=== PATIENT | female | born 1960 | race Caucasian/White ===

== ENCOUNTER 2018-01-15 17:49 | Emergency (ER) | payer MEDICARE, MEDICAID ==
[2018-01-15 18:30] VITALS: BP 177/81
[2018-01-15] MEDS ORDERED: Alum Hydrox/Mag Hydrox/Simeth 15 ML, Lidocaine 2% 15 ML PO ONE ×2 (19:09)
[2018-01-15] MEDS ORDERED: Ondansetron 4 MG/2 ML SDV IVPUSH ONE (19:11)
[2018-01-15] MEDS ORDERED: Sodium Chloride 0.9% 1,000 ML IV SCH (19:15)
--- NOTE | 2018-01-15 20:16 | EDM.PDOC ---
ED HPI GENERAL MEDICAL PROBLEM - General Chief Complaint: Abdominal Pain Stated Complaint: STOMACH PAIN, NAUSEA Time Seen by Provider: 01/15/18 18:37 Source of Information: Reports: Patient History Limitations: Reports: No Limitations - History of Present Illness INITIAL COMMENTS - FREE TEXT/NARRATIVE: 57 yo female presents to ER with nausea and vomiting. nausea and epigastric pain started 6 hours ago. very severe last night with emesis. She did take carafate last evening with some relief. this has happened intermittently in the past but resolved after 45 minutes. mhx of gastric surgery 4 years ago without complications. denies fever, chills, headache or general ill feeling. - Related Data Allergies Allergy/AdvReac Type Severity Reaction Status Date / Time aspirin Allergy Cannot Verified 01/15/18 18:31 Remember erythromycin base Allergy Hives Verified 01/15/18 18:31 [Erythromycin Base] NSAIDS (Non-Steroidal Allergy Cannot Verified 01/15/18 18:31 Anti-Inflamma Remember Home Meds: Home Meds Acetaminophen [Tylenol Extra Strength] 500 mg PO DAILY PRN 06/20/13 [History] Adalimumab [Humira] 40 mg SQ ASDIRECTED 06/20/13 [History] Citalopram Hydrobromide [Celexa] 40 mg PO DAILY 06/20/13 [History] Estradiol 1 mg PO DAILY 06/20/13 [History] Methotrexate Sodium [Trexall] 8 mg SQ ASDIRECTED 06/20/13 [History] Calcium Citrate 1 tab PO DAILY 01/15/18 [History] Mecobalamin [B-12] 1 tab PO DAILY 01/15/18 [History] Multivitamin [Multi-Day Vitamins] 1 tab PO DAILY 01/15/18 [History] 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: Musculoskeletal History: Reports: Fracture Immunologic History: Reports: Immunosuppression Dermatologic History: Reports: Psoriasis - Infectious Disease History Infectious Disease History: Reports: Chicken Pox - Past Surgical History GI Surgical History: Reports: Bariatric Procedure, Cholecystectomy, Colonoscopy , EGD Female Surgical History: Reports: Hysterectomy, Salpingo-Oophorectomy Social & Family History - Tobacco Use Smoking Status *Q: Current Every Day Smoker Years of Tobacco use: 10 Packs/Tins Daily: 0.5 - Caffeine Use Caffeine Use: Reports: None - Recreational Drug Use Recreational Drug Use: No ED ROS GENERAL - Review of Systems Review Of Systems: See Below Constitutional: Denies: Fever, Chills Respiratory: Denies: Shortness of Breath, Wheezing Cardiovascular: Denies: Chest Pain GI/Abdominal: Reports: Abdominal Pain Skin: Denies: Rash ED EXAM, GI/ABD - Physical Exam Exam: See Below Exam Limited By: No Limitations General Appearance: Alert, WD/WN, No Apparent Distress Respiratory/Chest: No Respiratory Distress, Lungs Clear, Normal Breath Sounds. No: Crackles, Rhonchi, Wheezing Cardiovascular: Regular Rate, Rhythm, No Murmur GI/Abdominal Exam: Normal Bowel Sounds, Soft, No Distention, No Mass, Tender ( epigastric moderate) Neurological: Alert, Oriented Skin Exam: Warm, Dry, Intact. No: Rash Course - Vital Signs Last Recorded V/S: Last Vital Signs Temp 36.9 C 01/15/18 18:50 Pulse 66 01/15/18 18:50 Resp 16 01/15/18 18:50 BP 177/81 H 01/15/18 18:50 Pulse Ox 97 01/15/18 18:50 - Orders/Labs/Meds Orders: Active Orders 24 hr Category Date Time Status Sodium Chloride 0.9% [Normal Saline] 1,000 ml Med 01/15/18 19:15 Active IV ASDIRECTED Medication Orders Sodium Chloride (Normal Saline) 1,000 mls @ 999 mls/hr IV ASDIRECTED MUSA Last Admin: 01/15/18 19:38 Dose: 999 mls/hr Labs: Laboratory Tests 01/15/18 01/15/18 Range/Units 19:09 19:09 WBC 11.3 H (4.5-11.0) K/uL RBC 4.48 (3.30-5.50) M/uL Hgb 15.3 H (12.0-15.0) g/dL Hct 44.7 (36.0-48.0) % MCV 100 H (80-98) fL MCH 34 H (27-31) pg MCHC 34 (32-36) % Plt Count 280 (150-400) K/uL Neut % (Auto) 67 H (36-66) % Lymph % (Auto) 23 L (24-44) % Phelps % (Auto) 9 H (2-6) % Eos % (Auto) 1 L (2-4) % Baso % (Auto) 0 (0-1) % Sodium 138 L (140-148) mmol/L Potassium 3.6 (3.6-5.2) mmol/L Chloride 102 (100-108) mmol/L Carbon Dioxide 29 (21-32) mmol/L Anion Gap 10.6 (5.0-14.0) mmol/L BUN 10 (7-18) mg/dL Creatinine 0.8 (0.6-1.0) mg/dL Est Cr Clr Drug Dosing 57.07 mL/min Estimated GFR (MDRD) > 60 (>60) Glucose 92 (74-106) mg/dL Calcium 8.5 (8.5-10.1) mg/dL Meds: Medications Generic Name Dose Route Start Last Admin Trade Name Freq PRN Reason Stop Dose Admin Sodium Chloride 1,000 mls @ 999 mls/hr 01/15/18 19:15 01/15/18 19:38 Normal Saline IV 999 mls/hr ASDIRECTED MUSA Administration Discontinued Medications Generic Name Dose Route Start Last Admin Trade Name Freq PRN Reason Stop Dose Admin Al Hydroxide/Mg Hydroxide 15 0 ml 01/15/18 19:09 01/15/18 19:43 ml/ Lidocaine HCl 15 ml PO 01/15/18 19:10 30 ml ONETIME ONE Administration Ondansetron HCl 4 mg 01/15/18 19:11 01/15/18 19:39 Zofran IVPUSH 01/15/18 19:12 4 mg ONETIME ONE Administration - Re-Assessments/Exams Free Text/Narrative Re-Assessment/Exam: 01/15/18 20:19 great improvement in pain following GI cocktail. will follow-up with gastric surgeon. She has carafate. will maintain clear liquid diet tonight advance to liquid tomorrow with continued diet advancement as tolerated Departure - Departure Time of Disposition: 20:21 Disposition: Home, Self-Care 01 Condition: Good Clinical Impression: Epigastric abdominal pain - Discharge Information Instructions: Nausea and Vomiting, Adult, [id number] Referrals: Guerita Fregoso PA [Primary Care Provider] - Additional Instructions: CArafate 30 minutes before meals and bedtime Maintain clear liquid diet tonight advance to liquid tomorrow with continued diet advancement as tolerated follow-up with gastric surgeon - My Orders Last 24 Hours: My Active Orders 01/15/18 19:15 Sodium Chloride 0.9% [Normal Saline] 1,000 ml IV ASDIRECTED - Assessment/Plan Last 24 Hours: My Active Orders 01/15/18 19:15 Sodium Chloride 0.9% [Normal Saline] 1,000 ml IV ASDIRECTED
== END 2018-01-15 20:38 | disposition home or self-care (01) ==
LOC: JP.ED 17:49
DX: R10.13 Epigastric pain (principal); F17.210 Nicotine dependence, cigarettes, uncomplicated; Z88.6 Allergy status to analgesic agent; Z88.8 Allergy status to other drugs, medicaments and biological substances; Z79.899 Other long term (current) drug therapy
CPT/HCPCS: 36415; 80048; 85025; 96361; 96374; 99284; A9270; J2405; J7030

== ENCOUNTER 2018-10-23 03:02 | Emergency (ER) | payer MEDICARE, MEDICAID ==
[2018-10-23 03:26] VITALS: BP 116/76
--- NOTE | 2018-10-23 03:37 | EDM.PDOC ---
ED HPI GENERAL MEDICAL PROBLEM - General Chief Complaint: Skin Complaint Stated Complaint: INFECTION LEFT ARM Time Seen by Provider: 10/23/18 03:32 Source of Information: Reports: Patient History Limitations: Reports: No Limitations - History of Present Illness INITIAL COMMENTS - FREE TEXT/NARRATIVE: pt has a dog scratch on the left wrist . This is red and swollen and is very painful. Onset: Other ( started this pm. ) Duration: Hour(s): Location: Reports: Upper Extremity, Left left wrist Pain Score (Numeric/FACES): 8 - Related Data Allergies Allergy/AdvReac Type Severity Reaction Status Date / Time aspirin Allergy Airway Verified 10/23/18 03:15 Tightness erythromycin base Allergy Hives Verified 01/19/18 07:08 [Erythromycin Base] NSAIDS (Non-Steroidal Allergy Airway Verified 10/23/18 03:15 Anti-Inflamma Tightness Home Meds: Home Meds Acetaminophen [Tylenol Extra Strength] 500 mg PO Q4H PRN 06/20/13 [History] Adalimumab [Humira] 40 mg SQ Q14D 06/20/13 [History] Citalopram Hydrobromide [Celexa] 40 mg PO DAILY 06/20/13 [History] Estradiol 0.5 mg PO DAILY 06/20/13 [History] Methotrexate Sodium [Trexall] 8 mg SQ Q7D 06/20/13 [History] Calcium Citrate 500 mg PO DAILY 01/15/18 [History] Mecobalamin [B-12] 1 tab PO DAILY 01/15/18 [History] Multivitamin [Multi-Day Vitamins] 1 tab PO DAILY 01/15/18 [History] Biotin 2,500 mcg PO DAILY 01/17/18 [History] Cholecalciferol (Vitamin D3) [Vitamin D3] 1,000 units PO DAILY 01/17/18 [History ] Dicyclomine [Bentyl] 10 mg PO Q4H PRN 01/17/18 [History] Esomeprazole Magnesium [Nexium] 20 mg PO DAILY 01/17/18 [History] Folic Acid 2 tab PO .M-SAT 01/17/18 [History] Lovastatin 20 mg PO DAILY 01/17/18 [History] Naltrexone 50 mg PO ASDIRECTED 01/17/18 [History] Vitamin B Complex [B Complex] 1 each PO DAILY 01/17/18 [History] traMADol [Ultram] 50 mg PO Q8H PRN 01/17/18 [History] Nystatin 60 gm TP ASDIRECTED 01/19/18 [History] Past Medical History HEENT History: Reports: Impaired Vision Cardiovascular History: Reports: 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: Musculoskeletal History: Reports: Back Pain, Chronic, Fracture, RA Psychiatric History: Reports: Anxiety, Depression Immunologic History: Reports: Immunosuppression, Other (See Below) Other Immunologic History: pt is currently taking humara for RA Dermatologic History: Reports: Psoriasis - Infectious Disease History Infectious Disease History: Reports: Chicken Pox - Past Surgical History GI Surgical History: Reports: Bariatric Procedure, Cholecystectomy, Colonoscopy , EGD Female Surgical History: Reports: Hysterectomy, Salpingo-Oophorectomy Social & Family History - Family History Family Medical History: Noncontributory - Tobacco Use Smoking Status *Q: Never Smoker - Caffeine Use Caffeine Use: Reports: Coffee - Recreational Drug Use Recreational Drug Use: No ED ROS GENERAL - Review of Systems Review Of Systems: See Below Constitutional: Reports: Other (pain in the left wrist. ) HEENT: Reports: No Symptoms Respiratory: Reports: No Symptoms Cardiovascular: Reports: No Symptoms Endocrine: Reports: No Symptoms GI/Abdominal: Reports: No Symptoms : Reports: No Symptoms Musculoskeletal: Reports: Other (Pain in the left wrist. ) ED EXAM, SKIN/RASH Exam: See Below Text/Narrative:: Pt was scratched by her dog. at the left wrist. Pt is noting alot of pain in the area and it is red. Exam Limited By: No Limitations General Appearance: Alert, Anxious, Moderate Distress Ears: Normal TMs Nose: Normal Inspection Throat/Mouth: Normal Inspection Head: Atraumatic Neck: Normal Inspection Respiratory/Chest: No Respiratory Distress Extremities: Other (left wrist is red . It appears to be very painful. ) Course - Vital Signs Last Recorded V/S: Last Vital Signs Temp 35.7 C 10/23/18 03:26 Pulse 71 10/23/18 03:26 Resp 16 10/23/18 03:26 BP 116/76 10/23/18 03:26 Pulse Ox - Orders/Labs/Meds Orders: Active Orders 24 hr Category Date Time Status Acetaminophen [Tylenol] Med 10/23/18 04:03 Once 650 mg PO NOW ONE Medication Orders Acetaminophen (Tylenol) 650 mg PO NOW ONE Stop: 10/23/18 04:04 Meds: Medications Generic Name Dose Route Start Last Admin Trade Name Jayme PRN Reason Stop Dose Admin Acetaminophen 650 mg 10/23/18 04:03 Tylenol PO 10/23/18 04:04 NOW ONE Discontinued Medications Generic Name Dose Route Start Last Admin Trade Name Jayme PRN Reason Stop Dose Admin Ceftriaxone Sodium 1 gm/ 0 gm 10/23/18 03:38 10/23/18 03:52 Lidocaine HCl 2.1 ml IM 10/23/18 03:39 1 inj ONETIME ONE Administration Ondansetron HCl 4 mg 10/23/18 04:02 Zofran Odt PO 10/23/18 04:03 ONETIME ONE Tramadol HCl 50 mg 10/23/18 04:02 Ultram PO 10/23/18 04:03 ONETIME ONE - Re-Assessments/Exams Free Text/Narrative Re-Assessment/Exam: 10/23/18 04:03 xray revealed no bone changes. She was soaked. She was given rocephen 1gm im and will be placed on augmentin. Departure - Departure Time of Disposition: 04:04 Disposition: Home, Self-Care 01 Condition: Fair Clinical Impression: Infection of left wrist - Discharge Information Referrals: Guerita Fregoso PA [Primary Care Provider] - Forms: ED Department Discharge Care Plan Goals: soak wrist in soapy water tid. Do range of motion of the hand, tramodol 50mg q6h with tylenol 650 three times daily, augmentin 875 bid . Whiole on the antibiotic use yogurt or probiotic. - My Orders Last 24 Hours: My Active Orders 10/23/18 04:03 Acetaminophen [Tylenol] 650 mg PO NOW ONE - Assessment/Plan Last 24 Hours: My Active Orders 10/23/18 04:03 Acetaminophen [Tylenol] 650 mg PO NOW ONE
[2018-10-23] MEDS ORDERED: cefTRIAXone 1 GM, Lidocaine 1% 2.1 ML IM ONE ×2 (03:38)
--- NOTE | 2018-10-23 03:55 | CRLCR ---
INDICATION: Wrist pain infection at site TECHNIQUE: Wrist radiograph 3 views left COMPARISON: None FINDINGS: Bone: A corticated ossicle is seen near the ulnar styloid. No evidence of osteomyelitis is seen. Joint: The radiocarpal, carpal, and carpometacarpal joints are unremarkable in appearance. Soft tissue: Unremarkable. No radiopaque foreign bodies are seen. IMPRESSION: 1. No evidence of osteomyelitis is seen. If there is a high clinical index of suspicion, further evaluation with contrast-enhanced MRI or dual-isotope bone scan is recommended, given their higher sensitivities. Dictated by Miles Noriega MD @ 10/23/2018 3:53:26 AM Dictated by: Miles Noriega MD @ 10/23/2018 03:53:30 (Electronically Signed)
[2018-10-23] MEDS ORDERED: Ondansetron 4 MG Tab.DIS PO ONE (04:02)
[2018-10-23] MEDS ORDERED: traMADol 50 MG Tab PO ONE (04:02)
[2018-10-23] MEDS ORDERED: Acetaminophen 325 MG Tab PO ONE (04:03)
== END 2018-10-23 04:30 | disposition home or self-care (01) ==
LOC: JP.ED 03:02
DX: S60.812A Abrasion of left wrist, initial encounter (principal); L08.9 Local infection of the skin and subcutaneous tissue, unspecified; E78.00 Pure hypercholesterolemia, unspecified; F41.9 Anxiety disorder, unspecified; F32.9 Major depressive disorder, single episode, unspecified; Z79.899 Other long term (current) drug therapy; Z88.8 Allergy status to other drugs, medicaments and biological substances; Z88.1 Allergy status to other antibiotic agents; W54.8XXA Other contact with dog, initial encounter
CPT/HCPCS: 73110; 96372; 99283; A9270; J0696; J2001

== ENCOUNTER 2018-10-24 10:58 | Inpatient (IN) | payer MEDICARE, MEDICAID ==
[2018-10-24] MEDS ORDERED: Ondansetron 4 MG Tab.DIS PO PRN (11:50)
[2018-10-24] MEDS ORDERED: Polyethylene Glycol 3350 Powder 17 GM Packet PO PRN (11:50)
[2018-10-24] MEDS ORDERED: Sodium Chloride 0.9% 10 ML Syringe FLUSH PRN (11:50)
--- NOTE | 2018-10-24 12:12 | PCM.HP ---
H&P History of Present Illness - General Date of Service: 10/24/18 Admit Problem/Dx: Admission Diagnosis/Problem Admission Diagnosis/Problem Cellulitis of wrist Source of Information: Patient, Family, Provider History Limitations: Reports: No Limitations - History of Present Illness Initial Comments - Free Text/Narative: Meghana presented to the clinic this morning with increasing left wrist pain and swelling. She reports onset of moderately severe achy left wrist pain 2 days prior to presentation. This pain radiated into her hand and upper distal forearm. Tramadol has helped the pain a little bit but she still has significant pain. Trying to move her wrist joint into flexion or extension makes the pain severe. She reports being scratched by her dog on the dorsum of her left wrist about one week ago. She did not seek medical treatment but did try to manage the wound at home. She thought things were getting better up until 2-3 days ago. She has had both subjective fevers and shaking chills at home. She has had episodes of nausea but no vomiting. No complaints of abdominal pain. No diarrhea. No other sick contacts or recent travel. She was seen in the emergency room 2 days ago and started on Augmentin. Things have been getting worse despite being on this antibiotic. In the clinic there was concern for superficial infection that was failing outpatient therapy. She was sent to the hospital for direct admission. - Related Data Allergies/Adverse Reactions: Allergies Allergy/AdvReac Type Severity Reaction Status Date / Time aspirin Allergy Airway Verified 10/24/18 12:52 Tightness erythromycin base Allergy Hives Verified 10/24/18 12:52 [Erythromycin Base] NSAIDS (Non-Steroidal Allergy Airway Verified 10/24/18 12:52 Anti-Inflamma Tightness Home Medications: Home Meds Acetaminophen [Tylenol Extra Strength] 1,000 mg PO Q4H PRN 06/20/13 [History] Adalimumab [Humira] 40 mg SQ Q14D 06/20/13 [History] Citalopram Hydrobromide [Celexa] 40 mg PO DAILY 06/20/13 [History] Estradiol 0.5 mg PO DAILY 06/20/13 [History] Methotrexate Sodium [Trexall] 8 mg SQ Q7D 06/20/13 [History] Calcium Citrate 500 mg PO DAILY 01/15/18 [History] Mecobalamin [B-12] 1 tab PO DAILY 01/15/18 [History] Multivitamin [Multi-Day Vitamins] 1 tab PO DAILY 01/15/18 [History] Biotin 2,500 mcg PO DAILY 01/17/18 [History] Cholecalciferol (Vitamin D3) [Vitamin D3] 1,000 units PO DAILY 01/17/18 [History ] Dicyclomine [Bentyl] 10 mg PO Q4H PRN 01/17/18 [History] Esomeprazole Magnesium [Nexium] 40 mg PO DAILY 01/17/18 [History] Folic Acid 2 tab PO .M-SAT 01/17/18 [History] Lovastatin 20 mg PO DAILY 01/17/18 [History] Vitamin B Complex [B Complex] 1 each PO DAILY 01/17/18 [History] traMADol [Ultram] 50 mg PO TID PRN 01/17/18 [History] Nystatin 60 gm TP ASDIRECTED 01/19/18 [History] Amoxicillin/Clavulanate K [Augmentin 875-125 MG] 1 tab PO BID 10/24/18 [History] Calcium Carbonate/Vitamin D3 [Caltrate 600 + D Soft Chew Tab] 2 tab PO DAILY [History] Clobetasol [Clobetasol 0.05%] 1 gram TOP BID PRN 10/24/18 [History] Polyethylene Glycol 3350 [MiraLAX] 17 g PO DAILY PRN 10/24/18 [History] Sucralfate 0.5 gm PO QID 10/24/18 [History] Triamcinolone Acetonide [Triamcinolone Acetonide 0.1% Crm] 1 applic TOP BID PRN 10/24/18 [History] Past Medical History HEENT History: Reports: Impaired Vision Cardiovascular History: Reports: High Cholesterol 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: Musculoskeletal History: Reports: Back Pain, Chronic, Fracture, RA Psychiatric History: Reports: Anxiety, Depression Hematologic History: Reports: None Immunologic History: Reports: Immunosuppression, Other (See Below) Other Immunologic History: pt is currently taking humara for RA Dermatologic History: Reports: Psoriasis - Infectious Disease History Infectious Disease History: Reports: Chicken Pox - Past Surgical History GI Surgical History: Reports: Bariatric Procedure, Cholecystectomy, Colonoscopy , EGD Female Surgical History: Reports: Hysterectomy, Salpingo-Oophorectomy Social & Family History - Family History Family Medical History: Noncontributory - Tobacco Use Smoking Status *Q: Former Smoker Used Tobacco, but Quit: Yes Month/Year Tobacco Last Used: may 2018 - Caffeine Use Caffeine Use: Reports: Coffee, Soda - Alcohol Use Alcohol Use History: No - Recreational Drug Use Recreational Drug Use: No H&P Review of Systems - Review of Systems: Review Of Systems: See Below Free Text/Narrative: A complete 12 point review of systems was obtained. Pertinent positives and negatives are noted in the history of present illness. All other systems were reviewed and were negative except as noted. Exam - Exam Exam: See Below - Vital Signs Vital Signs: Last Vital Signs Temp 37.1 C 10/24/18 11:33 Pulse 80 10/24/18 11:33 Resp 16 10/24/18 11:33 BP 122/82 10/24/18 11:33 Pulse Ox 99 10/24/18 11:33 - Exam Quality Assessment: No: Supplemental Oxygen General: Alert, Oriented, Cooperative. No: Mild Distress HEENT: Conjunctiva Clear, Mucosa Moist & [place]. No: Scleral Icterus Neck: Supple. No: Lymphadenopathy Lungs: Clear to Auscultation, Normal Respiratory Effort Cardiovascular: Regular Rate, Regular Rhythm. No: Systolic Murmur GI/Abdominal Exam: Normal Bowel Sounds, Soft, Non-Tender, No Distention Extremities: No Pedal Edema, Increased Warmth (left wrist dorsally including the thumb. Very tender to touch. Scabbed area dorsal left wrist with 1 cm diameter erythema. There is warmth and swelling that extends proximally from this wound about 6 cm. Any motion of the left wrist is very tender.) Skin: Warm, Dry. No: Rash Neuro Extensive - Mental Status: Alert, Oriented x3, Nl Response to Commands Neuro Extensive - Motor, Sensory, Reflexes: CN II-XII Intact. No: Dysarthria, Abnormal Motor, Tremor Psychiatric: Alert, Normal Affect - Patient Data Result Diagrams: 10/24/18 12:28 10/24/18 12:28 Imaging Impressions Last 24 hrs: MRI left wrist - images were personally reviewed - there is evidence for cellulitis involving the dorsal wrist and hand on the left. There is also Herminia synovitis with increased tendon sheath fluid the second and third extensor compartments. There is also Herminia synovitis in the fourth extensor compartment. *Q Meaningful Use (ADM) - VTE Risk Assess *Q Each Risk Factor Represents 1 Point: Age 41 - 59 years Total Score 1 Point Risk Factors: 1 Each Risk Factor Represents 2 Points: None Total Score 2 Point Risk Factors: 0 Each Risk Factor Represents 3 Points: None Total Score 3 Point Risk Factors: 0 Each Risk Factor Represents 5 Points: None Total Score 5 Point Risk Factors: 0 Venous Thromboembolism Risk Factor Score *Q: 1 - Problem List (1) Infection of left wrist SNOMED Code(s): 902323564, 290839727 ICD Code: M00.9 - PYOGENIC ARTHRITIS, UNSPECIFIED Status: Acute Current Visit: No (2) Rheumatoid arthritis SNOMED Code(s): 47342624 ICD Code: M06.9 - RHEUMATOID ARTHRITIS, UNSPECIFIED Status: Chronic Current Visit: Yes Qualifiers: Rheumatoid arthritis location: multiple sites Rheumatoid factor presence: unspecified presence Qualified Code(s): M06.9 - Rheumatoid arthritis, unspecified Problem List Initiated/Reviewed/Updated: Yes Orders Last 24hrs: Active Orders 24 hr Category Date Time Status Patient Status [ADT] Routine ADT 10/24/18 11:50 Ordered Dietary Supplements [RC] BIDMEALS Care 10/24/18 11:53 Ordered Intake and Output [RC] QSHIFT Care 10/24/18 11:51 Ordered Notify Provider Vital Signs [RC] ASDIRECTED Care 10/24/18 11:51 Ordered Oxygen Therapy [RC] PRN Care 10/24/18 11:50 Ordered Peripheral IV Care [RC] . DIRECTED Care 10/24/18 11:52 Ordered Up ad Kimmie [RC] ASDIRECTED Care 10/24/18 11:50 Ordered VTE/DVT Education [RC] Per Unit Routine Care 10/24/18 11:50 Ordered Vital Signs [RC] Q4H Care 10/24/18 11:50 Ordered Nothing per Oral Now Diet [DIET] Diet 10/24/18 Lunch Ordered Upr Ext Joint w wo Cont Lt [MR] Routine Exams 10/24/18 11:54 Ordered BASIC METABOLIC PANEL,BMP [CHEM] Routine Lab 10/24/18 11:50 Ordered C-REACTIVE PROTEIN [CHEM] Routine Lab 10/24/18 11:50 Ordered CBC WITH AUTO DIFF [HEME] Routine Lab 10/24/18 11:50 Ordered CULTURE BLOOD [BC] Urgent Lab 10/24/18 11:52 Ordered CULTURE BLOOD [BC] Urgent Lab 10/24/18 11:52 Ordered Acetaminophen [Tylenol] Med 10/24/18 11:50 Ordered 650 mg PO Q4H PRN Citalopram Hydrobromide [Celexa] Med 10/25/18 09:00 Ordered 40 mg PO DAILY Clindamycin Phosphate [Cleocin] 300 mg Med 10/24/18 12:00 Ordered Sodium Chloride 0.9% [Normal Saline] 50 ml IV Q6H Docusate Sodium/Sennosides [Senna Plus] Med 10/24/18 11:50 Ordered 1 tab PO BID PRN Doxycycline [Vibramycin] 100 mg Med 10/24/18 12:00 Ordered Sodium Chloride 0.9% [Normal Saline] 100 ml IV Q12HR Estradiol [Estradiol] Med 10/25/18 09:00 Ordered 0.5 mg PO DAILY Folic Acid Med 10/24/18 12:15 Ordered 2 tab PO .M-SAT Lactobacillus Rhamnosus GG [Culturelle] Med 10/24/18 21:00 Ordered 1 cap PO BID Lovastatin [Mevacor] Med 10/25/18 09:00 Ordered 20 mg PO DAILY Ondansetron [Zofran ODT] Med 10/24/18 11:50 Ordered 4 mg PO Q6H PRN Pantoprazole [ProTONIX] Med 10/25/18 07:30 Ordered 40 mg PO ACBREAKFAST Polyethylene Glycol 3350 [MiraLAX] Med 10/24/18 11:50 Ordered 17 gm PO DAILY PRN Sodium Chloride 0.9% @ 125 MLS/HR (1000ml) Med 10/24/18 12:00 Ordered Sodium Chloride 0.9% [Normal Saline] 1,000 ml IV ASDIRECTED Sodium Chloride 0.9% [Saline Flush] Med 10/24/18 11:50 Ordered 10 ml FLUSH ASDIRECTED PRN oxyCODONE Med 10/24/18 11:50 Ordered 5 mg PO Q4H PRN Blood Culture x2 Reflex Set [OM.PC] Urgent Oth 10/24/18 11:52 Ordered Peripheral IV Insertion Adult [OM.PC] Routine Oth 10/24/18 11:50 Ordered Sequential Compression Device [OM.PC] Per Unit Routine Oth 10/24/18 11:51 Ordered Resuscitation Status Routine Resus Stat 10/24/18 11:50 Ordered Medication Orders Acetaminophen (Tylenol) 650 mg PO Q4H PRN PRN Reason: Pain (Mild 1-3)/fever Folic Acid (Folic Acid) mg PO .M-SAT [facility] Clindamycin Phosphate 300 mg/ (Sodium Chloride) 52 mls @ 150 mls/hr IV Q6H [facility] Doxycycline Hyclate 100 mg/ (Sodium Chloride) 100 mls @ 100 mls/hr IV Q12HR [facility] Sodium Chloride (Normal Saline) 1,000 mls @ 125 mls/hr IV ASDIRECTED [facility] Lactobacillus Rhamnosus (Culturelle) 1 cap PO BID [facility] Lovastatin (Mevacor) 20 mg PO DAILY [facility] Non-Formulary Medication (Citalopram Hydrobromide [Celexa]) 40 mg PO DAILY [facility] Non-Formulary Medication (Estradiol [Estradiol]) 0.5 mg PO DAILY [facility] Ondansetron HCl (Zofran Odt) 4 mg PO Q6H PRN PRN Reason: Nausea able to take PO Oxycodone HCl (Oxycodone) 5 mg PO Q4H PRN PRN Reason: Pain (moderate 4-6) Pantoprazole Sodium (Protonix) 40 mg PO ACBREAKFAST [facility] Polyethylene Glycol (Miralax) 17 gm PO DAILY PRN PRN Reason: Constipation Senna/Docusate Sodium (Senna Plus) 1 tab PO BID PRN PRN Reason: Constipation Sodium Chloride (Saline Flush) 10 ml FLUSH ASDIRECTED PRN PRN Reason: Keep Vein Open Assessment/Plan Comment:: ASSESSMENT AND PLAN - Left wrist infection with cellulitis and extensor tenosynovitis - this has been progressing despite outpatient therapy with Augmentin. No evidence for sepsis but she does have leukocytosis and significantly elevated C-reactive protein at more than 10. She has significant pain at this time. Orthopedics will be consult for assistance with management. There is no evidence for sepsis at this time. She is on immunosuppressive medications. -Antibiotic coverage with doxycycline and clindamycin -Pain control -Orthopedics consultation -Blood cultures Rheumatoid arthritis - she is on chronic immunosuppressive medications. Joint symptoms are stable at this time. -Hold immunosuppressive medications until infection has improved Maintenance issues - - DVT prophylaxis - mechanical - GI prophylaxis - PPI - Nutrition - nothing by mouth until after orthopedic consultation in case surgery is needed this afternoon or nothing by mouth after midnight if surgery is planned for tomorrow - Andrew catheter - not indicated CODE STATUS - full code Admission justification - This patient will be admitted for inpatient services and is medically appropriate meeting medical necessity for inpatient admission as outlined in my documentation. I reasonably expect the patient will require inpatient services that span a period time over 2 midnights. I reasonably expect this patient to be discharged or transferred within 96 hours after admission to the [facility]. Disposition - I would anticipate discharge home after the hospital stay Primary care physician - Lidia Zambrano M.D.
[2018-10-24] MEDS ORDERED: Gadoteridol 279.3 MG/ML 15 ML SDV IV SCH (13:00)
[2018-10-24] MEDS: Doxycycline 100 MG in Sodium Chloride 0.9% 100 ML IV SCH (13:11)
[2018-10-24] MEDS: oxyCODONE 5 MG Tab PO PRN ×2 (13:17→20:30)
--- NOTE | 2018-10-24 13:42 | CRLMR ---
HISTORY: Dog bite. Evaluate for deep infection and osteomyelitis. TECHNIQUE: MRI left wrist without and with IV contrast. COMPARISON: Radiographs 10/23/2018. FINDINGS: Localized contour irregularity of the dorsal skin of the wrist may be a wound. Edema like infiltration of subcutaneous fat in the dorsal wrist and hand. Increased fluid in the 2nd and 3rd extensor compartment tendon sheaths. Edema like signal and enhancement around the 4th extensor compartment tendons in the hand, greatest around the index finger extensor tendons. Edema like signal in the deep fascial planes of the distal forearm dorsally. Edema like signal in the dorsal musculature just proximal to the wrist and in the probe artery inner quadratus muscle. Physiologic quantity of fluid in the flexor tendon sheaths. Flexor and extensor tendons are intact. Small effusions of the radiocarpal and midcarpal compartments and the distal radioulnar joint. Prominent fluid in the proximal pisotriquetral recess. Edema like marrow signal in small cysts in the dorsal trapezoid is likely degenerative. 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 Mild positive ulnar variance. Cartilage loss over the proximal lunate with small subchondral cysts and marrow edema. No erosions. No osteomyelitis. Full-thickness tearing of the central triangular fibrocartilage complex. Remote ununited ulnar styloid fracture. No acute fracture. Scapholunate and lunotriquetral ligaments are intact. No focal abnormality of the median or ulnar nerves. IMPRESSION: 1. Findings compatible with cellulitis in the dorsal wrist and hand. 2. Tenosynovitis of the 2nd and 3rd extensor compartments with increased tendon sheath fluid. Fluid may be sterile or infected. Probable tenosynovitis of the 4th extensor compartment without increased tendon sheath fluid. 3. Reactive edema or myositis in the distal dorsal forearm musculature. 4. Small radiocarpal, midcarpal, and distal radioulnar joint effusions. No erosions or osteomyelitis. 5. 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 6. Full-thickness tearing of the central triangular fibrocartilage complex. Dictated by Darwin León MD @ Oct 24 2018 1:27PM Signed by Dr. Darwin León @ Oct 24 2018 1:40PM
--- NOTE | 2018-10-24 16:44 | PCM.CONS ---
H&P History of Present Illness - General Date of Service: 10/24/18 Admit Problem/Dx: Admission Diagnosis/Problem Admission Diagnosis/Problem Cellulitis of wrist Source of Information: Patient, Old Records History Limitations: Reports: No Limitations - History of Present Illness Initial Comments - Free Text/Narative: 58-year-old female admitted with left wrist infection. She reports being scratched by her dog at home about a week ago. She didn't think too much of the wound and dressed it herself at home. Seem to be doing well until a couple of days ago when she had increased pain and swelling and redness. These seemed to come on after she took her usual dose of methotrexate and Humira. Was started on Augmentin but pain and redness worsened. She is admitted to the clinic today for IV antibiotics and evaluation of possible septic wrist. Onset of Symptoms: Reports: Gradual Improves with: Reports: Rest Worsens with: Reports: Movement - Related Data Allergies/Adverse Reactions: Allergies Allergy/AdvReac Type Severity Reaction Status Date / Time aspirin Allergy Airway Verified 10/24/18 12:52 Tightness erythromycin base Allergy Hives Verified 10/24/18 12:52 [Erythromycin Base] NSAIDS (Non-Steroidal Allergy Airway Verified 10/24/18 12:52 Anti-Inflamma Tightness Home Medications: Home Meds Acetaminophen [Tylenol Extra Strength] 1,000 mg PO Q4H PRN 06/20/13 [History] Adalimumab [Humira] 40 mg SQ Q14D 06/20/13 [History] Citalopram Hydrobromide [Celexa] 40 mg PO DAILY 06/20/13 [History] Estradiol 0.5 mg PO DAILY 06/20/13 [History] Methotrexate Sodium [Trexall] 8 mg SQ Q7D 06/20/13 [History] Calcium Citrate 500 mg PO DAILY 01/15/18 [History] Mecobalamin [B-12] 1 tab PO DAILY 01/15/18 [History] Multivitamin [Multi-Day Vitamins] 1 tab PO DAILY 01/15/18 [History] Biotin 2,500 mcg PO DAILY 01/17/18 [History] Cholecalciferol (Vitamin D3) [Vitamin D3] 1,000 units PO DAILY 01/17/18 [History ] Dicyclomine [Bentyl] 10 mg PO Q4H PRN 01/17/18 [History] Esomeprazole Magnesium [Nexium] 40 mg PO DAILY 01/17/18 [History] Folic Acid 2 tab PO .M-SAT 01/17/18 [History] Lovastatin 20 mg PO DAILY 01/17/18 [History] Vitamin B Complex [B Complex] 1 each PO DAILY 01/17/18 [History] traMADol [Ultram] 50 mg PO TID PRN 01/17/18 [History] Nystatin 60 gm TP ASDIRECTED 01/19/18 [History] Amoxicillin/Clavulanate K [Augmentin 875-125 MG] 1 tab PO BID 10/24/18 [History] Calcium Carbonate/Vitamin D3 [Caltrate 600 + D Soft Chew Tab] 2 tab PO DAILY [History] Clobetasol [Clobetasol 0.05%] 1 gram TOP BID PRN 10/24/18 [History] Polyethylene Glycol 3350 [MiraLAX] 17 g PO DAILY PRN 10/24/18 [History] Sucralfate 0.5 gm PO QID 10/24/18 [History] Triamcinolone Acetonide [Triamcinolone Acetonide 0.1% Crm] 1 applic TOP BID PRN 10/24/18 [History] Past Medical History HEENT History: Reports: Impaired Vision Cardiovascular History: Reports: High Cholesterol [employer]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: Musculoskeletal History: Reports: Back Pain, Chronic, Fracture, RA Psychiatric History: Reports: Anxiety, Depression Hematologic History: Reports: None Immunologic History: Reports: Immunosuppression, Other (See Below) Other Immunologic History: pt is currently taking humara for RA Dermatologic History: Reports: Psoriasis - Infectious Disease History Infectious Disease History: Reports: Chicken Pox - Past Surgical History GI Surgical History: Reports: Bariatric Procedure, Cholecystectomy, Colonoscopy , EGD Female Surgical History: Reports: Hysterectomy, Salpingo-Oophorectomy Social & Family History - Family History Family Medical History: Noncontributory - Tobacco Use Smoking Status *Q: Former Smoker Used Tobacco, but Quit: Yes Month/Year Tobacco Last Used: may 2018 - Caffeine Use Caffeine Use: Reports: Coffee, Soda - Recreational Drug Use Recreational Drug Use: No H&P Review of Systems - Review of Systems: Review Of Systems: See Below General: Reports: Fever HEENT: Reports: No Symptoms Pulmonary: Reports: No Symptoms Cardiovascular: Reports: No Symptoms Gastrointestinal: Reports: No Symptoms Neurological: Reports: No Symptoms Exam - Exam Exam: See Below - Vital Signs Vital Signs: Last Vital Signs Temp 36.9 C 10/24/18 14:43 Pulse 66 10/24/18 14:43 Resp 16 10/24/18 14:43 BP 126/73 10/24/18 14:43 Pulse Ox 98 10/24/18 14:43 - Exam General: Alert, Oriented, 4 Skin: Wound Skin Alteration Location (Drawings Not To Scale): 1 - Approx 5x4 mm wound on dorsum of left wrist with surrounding erythema, no drainage, mild swelling, pain with attempted ROM Neurological: Cranial Nerves Intact, Reflexes Equal Bilateral Neuro Extensive - Mental Status: Alert, Oriented x3, Normal Mood/Affect, Normal Cognition Neuro Extensive - Motor, Sensory, Reflexes: CN II-XII Intact, Normal Gait, Normal Reflexes - Patient Data Lab Results Last 24 hrs: Laboratory Results - last 24 hr 10/24/18 10/24/18 Range/Units 12:28 12:28 WBC 11.9 H (4.5-11.0) K/uL RBC 4.15 (3.30-5.50) M/uL Hgb 14.3 (12.0-15.0) g/dL Hct 42.6 (36.0-48.0) % MCV 103 H (80-98) fL MCH 35 H (27-31) pg MCHC 34 (32-36) % Plt Count 211 (150-400) K/uL Neut % (Auto) 79 H (36-66) % Lymph % (Auto) 13 L (24-44) % [place] % (Auto) 7 H (2-6) % Eos % (Auto) 0 L (2-4) % Baso % (Auto) 0 (0-1) % Sodium 139 L (140-148) mmol/L Potassium 4.5 (3.6-5.2) mmol/L Chloride 105 (100-108) mmol/L Carbon Dioxide 28 (21-32) mmol/L Anion Gap 10.5 (5.0-14.0) mmol/L BUN 13 (7-18) mg/dL Creatinine 0.7 (0.6-1.0) mg/dL Est Cr Clr Drug Dosing TNP Estimated GFR (MDRD) > 60 (>60) Glucose 80 (74-106) mg/dL Calcium 8.9 (8.5-10.1) mg/dL C-Reactive Protein 10.31 H (0.0-0.3) mg/dL Result Diagrams: 10/24/18 12:28 10/24/18 12:28 Consult PN Assessment/Plan Procedures: Procedures BLOOD TYPING SEROLOGIC ABO (05/10/13) BLOOD TYPING SEROLOGIC RH(D) (05/10/13) BREAST TOMOSYNTHESIS BI (08/10/18) COMPLETE CBC W/AUTO DIFF WBC (01/15/18) CULTURE SCREEN ONLY (01/19/18) EGD BIOPSY SINGLE/MULTIPLE (01/19/18) EMERGENCY DEPT VISIT (01/15/18) HYDRATE IV INFUSION ADD-ON (01/15/18) METABOLIC PANEL TOTAL CA (01/15/18) MRI ABDOMEN W/O DYE (09/22/17) RBC ANTIBODY SCREEN (05/10/13) ROUTINE VENIPUNCTURE (01/15/18) SCR MAMMO BI INCL CAD (08/10/18) THER/PROPH/DIAG INJ IV PUSH (01/15/18) (1) Cellulitis of wrist SNOMED Code(s): 92631255 Code(s): L03.119 - CELLULITIS OF UNSPECIFIED PART OF LIMB Current Visit: Yes Comment: dorsum of left wrist (2) Extensor tenosynovitis of left wrist SNOMED Code(s): 401861211 Code(s): M65.832 - OTHER SYNOVITIS AND TENOSYNOVITIS, LEFT FOREARM Current Visit: Yes (3) Infectious tenosynovitis of left wrist extensor SNOMED Code(s): 149203049, 624420404 Code(s): M65.132 - OTHER INFECTIVE (TENO)SYNOVITIS, LEFT WRIST Current Visit: Yes Problem List Initiated/Reviewed/Updated: Yes Plan: Cellulitis with tenosynovitis left wrist in immune suppressed patient (Humira/ methotrexate) from dog scratch. MRI with no evidence of bone or joint involvement. Just started on IV antibiotics. Will re-evaluate tomorrow morning. Can do I & D tomorrow if not improving.
[2018-10-24] MEDS: Sodium Chloride 0.9% 1,000 ML IV SCH (20:31)
[2018-10-24] MEDS: Lactobacillus Rhamnosus GG (Probiotic) Cap PO SCH (20:31)
[2018-10-25] MEDS: Doxycycline 100 MG in Sodium Chloride 0.9% 100 ML IV SCH ×2 (00:10→15:22)
[2018-10-25] MEDS: oxyCODONE 5 MG Tab PO PRN ×5 (05:30→22:35)
[2018-10-25] MEDS ORDERED: Propofol 200 MG/20 ML SDV ONE (09:31)
[2018-10-25] MEDS ORDERED: fentaNYL 100 MCG/2 ML SDV ONE (09:31)
[2018-10-25] MEDS ORDERED: Midazolam 1 MG/ML 2 ML SDV ONE (09:31)
--- NOTE | 2018-10-25 09:51 | PCM.PN ---
- General Info Date of Service: 10/25/18 Subjective Update: there were no acute events overnight. Pain has been adequately controlled. She has not had any fevers. She can flex and extend her wrist slightly better than yesterday. She thinks the swelling is slightly better today. No nausea or vomiting. Plan is for surgical intervention later this morning to irrigate and debridement the wound. Functional Status: Reports: Pain Controlled - Review of Systems General: Denies: Fever Musculoskeletal: Reports: Joint Pain (left wrist ), Joint Swelling (left wrist) - Patient Data Vitals - Most Recent: Last Vital Signs Temp 36.5 C 10/25/18 07:00 Pulse 60 10/25/18 07:00 Resp 16 10/25/18 07:00 BP 130/89 10/25/18 07:00 Pulse Ox 97 10/25/18 07:00 I&O - Last 24 Hours: Intake & Output 10/24/18 10/25/18 10/25/18 22:59 06:59 14:59 Intake Total 1369 1925 Balance 1369 1925 Lab Results Last 24 Hours: Laboratory Results - last 24 hr 10/24/18 10/24/18 Range/Units 12:28 12:28 WBC 11.9 H (4.5-11.0) K/uL RBC 4.15 (3.30-5.50) M/uL Hgb 14.3 (12.0-15.0) g/dL Hct 42.6 (36.0-48.0) % MCV 103 H (80-98) fL MCH 35 H (27-31) pg MCHC 34 (32-36) % Plt Count 211 (150-400) K/uL Neut % (Auto) 79 H (36-66) % Lymph % (Auto) 13 L (24-44) % Sullivan % (Auto) 7 H (2-6) % Eos % (Auto) 0 L (2-4) % Baso % (Auto) 0 (0-1) % Sodium 139 L (140-148) mmol/L Potassium 4.5 (3.6-5.2) mmol/L Chloride 105 (100-108) mmol/L Carbon Dioxide 28 (21-32) mmol/L Anion Gap 10.5 (5.0-14.0) mmol/L BUN 13 (7-18) mg/dL Creatinine 0.7 (0.6-1.0) mg/dL Est Cr Clr Drug Dosing TNP Estimated GFR (MDRD) > 60 (>60) Glucose 80 (74-106) mg/dL Calcium 8.9 (8.5-10.1) mg/dL C-Reactive Protein 10.31 H (0.0-0.3) mg/dL Med Orders - Current: Current Medications Acetaminophen (Tylenol) 650 mg PO Q4H PRN PRN Reason: Pain (Mild 1-3)/fever Citalopram Hydrobromide (Celexa) 40 mg PO DAILY [facility] Estradiol (Estradiol) 0.5 mg PO DAILY [facility] Folic Acid (Folic Acid) 2 mg PO MoTuWeThFrSa@0900 [facility] Gadoteridol (Prohance) 15 ml IV .A DIRECTED [facility] Clindamycin Phosphate 300 mg/ (Sodium Chloride) 52 mls @ 150 mls/hr IV Q6H [facility] Last Admin: 10/25/18 05:28 Dose: 150 mls/hr Doxycycline Hyclate 100 mg/ (Sodium Chloride) 100 mls @ 100 mls/hr IV Q12H [facility] Last Admin: 10/25/18 00:10 Dose: 100 mls/hr Sodium Chloride (Normal Saline) 1,000 mls @ 125 mls/hr IV ASDIRECTED [facility] Last Admin: 10/24/18 20:31 Dose: 125 mls/hr Lactobacillus Rhamnosus (Culturelle) 1 cap PO BID [facility] Last Admin: 10/24/18 20:31 Dose: 1 cap Lovastatin (Mevacor) 20 mg PO QPM [facility] Last Admin: 10/24/18 17:36 Dose: 20 mg Ondansetron HCl (Zofran Odt) 4 mg PO Q6H PRN PRN Reason: Nausea able to take PO Oxycodone HCl (Oxycodone) 5 mg PO Q4H PRN PRN Reason: Pain (moderate 4-6) Last Admin: 10/25/18 05:30 Dose: 5 mg Pantoprazole Sodium (Protonix) 40 mg PO ACBREAKFAST [facility] Polyethylene Glycol (Miralax) 17 gm PO DAILY PRN PRN Reason: Constipation Senna/Docusate Sodium (Senna Plus) 1 tab PO BID PRN PRN Reason: Constipation Sodium Chloride (Saline Flush) 10 ml FLUSH ASDIRECTED PRN PRN Reason: Keep Vein Open Discontinued Medications Fentanyl (Sublimaze) Confirm Administered Dose 100 mcg .ROUTE .STK-MED ONE Stop: 10/25/18 09:32 Midazolam HCl (Versed 1 Mg/Ml) Confirm Administered Dose 2 mg .ROUTE .STK-MED ONE Stop: 10/25/18 09:32 Propofol (Diprivan 20 Ml) Confirm Administered Dose 200 mg .ROUTE .STK-MED ONE Stop: 10/25/18 09:32 - Exam Quality Assessment: No: Supplemental Oxygen General: Alert, Oriented, Cooperative, No Acute Distress Lungs: Normal Respiratory Effort GI/Abdominal Exam: Soft, No Distention Extremities: Other (there is swelling and warmth over the dorsum of the left hand which extends proximally onto the forearm. There is a 4 mm punctate wound with scab surrounded by mild erythema which has improved compared to yesterday. She has improved range of motion today but still limited compared to baseline) Psy/Mental Status: Alert, Normal Affect - Problem List & Annotations (1) Infection of left wrist SNOMED Code(s): 896015405, 538839371 Code(s): M00.9 - PYOGENIC ARTHRITIS, UNSPECIFIED Status: Acute Current Visit: No (2) Rheumatoid arthritis SNOMED Code(s): 88366810 Code(s): M06.9 - RHEUMATOID ARTHRITIS, UNSPECIFIED Status: Chronic Current Visit: Yes Qualifiers: Rheumatoid arthritis location: multiple sites Rheumatoid factor presence: unspecified presence Qualified Code(s): M06.9 - Rheumatoid arthritis, unspecified - Problem List Review Problem List Initiated/Reviewed/Updated: Yes - My Orders Last 24 Hours: My Active Orders 10/24/18 11:50 Patient Status [ADT] Routine Oxygen Therapy [RC] PRN Up ad Kimmie [RC] ASDIRECTED VTE/DVT Education [RC] Per Unit Routine Vital Signs [RC] Q4H Acetaminophen [Tylenol] 650 mg PO Q4H PRN Docusate Sodium/Sennosides [Senna Plus] 1 tab PO BID PRN Ondansetron [Zofran ODT] 4 mg PO Q6H PRN Polyethylene Glycol 3350 [MiraLAX] 17 gm PO DAILY PRN Sodium Chloride 0.9% [Saline Flush] 10 ml FLUSH ASDIRECTED PRN oxyCODONE 5 mg PO Q4H PRN Peripheral IV Insertion Adult [OM.PC] Routine Resuscitation Status Routine 10/24/18 11:51 Intake and Output [RC] QSHIFT Notify Provider Vital Signs [RC] ASDIRECTED Sequential Compression Device [OM.PC] Per Unit Routine 10/24/18 11:52 Peripheral IV Care [RC] . DIRECTED Blood Culture x2 Reflex Set [OM.PC] Urgent 10/24/18 11:53 Dietary Supplements [RC] BIDMEALS 10/24/18 12:00 Clindamycin Phosphate [Cleocin] 300 mg Sodium Chloride 0.9% [Normal Saline] 50 ml IV Q6H Sodium Chloride 0.9% [Normal Saline] 1,000 ml IV ASDIRECTED 10/24/18 12:15 CULTURE BLOOD [BC] Urgent 10/24/18 12:25 CULTURE BLOOD [BC] Urgent 10/24/18 13:00 Doxycycline [Vibramycin] 100 mg Sodium Chloride 0.9% [Normal Saline] 100 ml IV Q12H Gadoteridol [ProHance] 15 ml IV .A DIRECTED 10/24/18 14:17 Notify Provider Consults [RC] ASDIRECTED Consult to Physician [CONS] Routine 10/24/18 17:00 Lovastatin [Mevacor] 20 mg PO QPM 10/24/18 21:00 Lactobacillus Rhamnosus GG [Culturelle] 1 cap PO BID 10/24/18 Dinner NPO After Midnight [Nothing per Oral After Midnight Diet] [DIET] NPO After Midnight [Nothing per Oral After Midnight Diet] [DIET] Regular Diet [DIET] 10/25/18 07:30 Pantoprazole [ProTONIX] 40 mg PO ACBREAKFAST 10/25/18 09:00 Citalopram [Celexa] 40 mg PO DAILY Estradiol 0.5 mg PO DAILY Folic Acid 2 mg PO MoTuWeThFrSa@0900 10/26/18 05:00 BASIC METABOLIC PANEL,BMP [CHEM] Timed CBC W/O DIFF,HEMOGRAM [HEME] Timed (1) - Plan Plan:: ASSESSMENT AND PLAN - Left wrist infection with cellulitis and extensor tenosynovitis - this has been progressing despite outpatient therapy with Augmentin. MRI yesterday showed tenosynovitis of the second and third extensor tendons as well as some involvement of the fourth. Still significant swelling and pain around the joint though it is a little better today. Surgical intervention for I and D is planned. -Antibiotic coverage with doxycycline and clindamycin -surgical intervention this morning -Pain control -follow-up Blood cultures Rheumatoid arthritis - she is on chronic immunosuppressive medications. Joint symptoms are stable at this time. -Hold immunosuppressive medications until infection has improved Maintenance issues - - DVT prophylaxis - mechanical - GI prophylaxis - PPI - Nutrition - nothing by mouth until after surgery - Andrew catheter - not indicated Disposition - I would anticipate discharge home after the hospital stay Primary care physician - Lidia Zambrano M.D.
[2018-10-25] MEDS ORDERED: Bupivacaine 0.5% 30 ML SDV ONE (10:12)
[2018-10-25] MEDS: Citalopram 20 MG Tab PO SCH (10:41)
[2018-10-25] MEDS ORDERED: Lactated Ringers 1,000 ML ONE (12:12)
[2018-10-25] MEDS ORDERED: Morphine 2 MG/ML Syringe IVPUSH PRN (12:29)
[2018-10-25] MEDS: Acetaminophen 325 MG Tab PO PRN ×3 (14:02→22:35)
--- NOTE | 2018-10-25 14:25 | PCM.OPNOTE ---
- General Post-Op/Procedure Note Date of Surgery/Procedure: 10/25/18 Operative Procedure(s): Irrigation and debridement of left wrist wound Findings: eschar over extensor tendons, small amount of fluid around extensor tendons, no abscess Pre Op Diagnosis: left wrist wound, infectious tinosynovitis of extensor tendons Post-Op Diagnosis: Same Anesthesia Technique: Local, Moderate Sedation Primary Surgeon: Pascual MARC in mLs: 15 Condition: Good Free Text/Narrative:: Intake & Output 10/24/18 10/25/18 10/25/18 22:59 06:59 14:59 Intake Total 1369 1925 50 Balance 1369 1925 50 Indications: Meghana is a 58-year-old female with a history of a scratch to the dorsum of her left wrist from her dog approximately 1 week ago.She initially treated this at home with wound care. Became increasingly more painful with associated fevers.She was started on oral antibiotics however pain but erythema progressed. She was then admitted for IV antibiotics and evaluation of potential septic wrist. MRI reveals infectious tenosynovitis with fluid that does not appear to extend into the joint or bone. She now presents to the operating room for debridement of her wound and irrigation and debridement of a tenosynovitis.Risks, benefits and potential complications were discussed. She agrees to proceed. Procedure: After adequate sedation was obtained the left arm and wrist were prepped and draped in a sterile fashion. Esmarch was used as a tourniquet at the wrist level. The eschar over the tendons was excised in an elliptical fashion. Soft tissue was debrided sharply.Cultures were taken from beneath and around the tendons.Fluid was present around the tendons but no grossly purulent fluid or abscess was identified. Blunt dissection was carried out beneath the extensor tendons and the wound was then irrigated with saline. Skin was then closed with 3-0 nylon using a far near-near far technique to take tension off of the skin.Sterile dressing was then applied. Patient tolerated the procedure well, there were no complications and she was taken from the operating room in stable condition.
[2018-10-25] MEDS: Pantoprazole 40 MG Tab.CR PO SCH (15:19)
[2018-10-25] MEDS: Estradiol 0.5 MG Tab PO SCH (15:19)
[2018-10-25] MEDS: Lactobacillus Rhamnosus GG (Probiotic) Cap PO SCH ×2 (15:19→20:03)
[2018-10-25] MEDS: Folic Acid 1 MG Tab PO SCH (15:20)
[2018-10-25] MEDS: Sodium Chloride 0.9% 1,000 ML IV SCH (19:59)
[2018-10-26] MEDS: Doxycycline 100 MG in Sodium Chloride 0.9% 100 ML IV SCH (00:43)
[2018-10-26] MEDS: oxyCODONE 5 MG Tab PO PRN ×3 (02:51→11:04)
[2018-10-26] MEDS: Acetaminophen 325 MG Tab PO PRN ×3 (02:52→11:03)
[2018-10-26] MEDS: Sodium Chloride 0.9% 1,000 ML IV SCH (04:05)
[2018-10-26] MEDS: Pantoprazole 40 MG Tab.CR PO SCH (07:31)
[2018-10-26] MEDS: Citalopram 20 MG Tab PO SCH (08:23)
[2018-10-26] MEDS: Estradiol 0.5 MG Tab PO SCH (08:24)
[2018-10-26] MEDS: Folic Acid 1 MG Tab PO SCH (08:24)
[2018-10-26] MEDS: Lactobacillus Rhamnosus GG (Probiotic) Cap PO SCH (08:24)
[2018-10-26 11:19] VITALS: BP 142/73
[2018-10-26] MEDS ORDERED: Doxycycline 100 MG Cap PO ONE (11:30)
[2018-10-26] MEDS ORDERED: Clindamycin HCl 150 MG Cap PO ONE (11:30)
--- NOTE | 2018-10-26 12:33 | PCM.DCSUM1 ---
Discharge Summary - Hospital Course Brief History: 58-year-old female with history of rheumatoid arthritis on chronic immunosuppression who presented with one week of progressive swelling and pain in her left wrist following a dog scratch. She was directly admitted from the clinic for management of cellulitis. Diagnosis: Stroke: No - Discharge Data Discharge Date: 10/26/18 Discharge Disposition: Home, Self-Care 01 Condition: Good - Discharge Diagnosis/Problem(s) (1) Infection of left wrist SNOMED Code(s): 585354100, 589284382 ICD Code: M00.9 - PYOGENIC ARTHRITIS, UNSPECIFIED Status: Acute (2) Rheumatoid arthritis SNOMED Code(s): 35537950 ICD Code: M06.9 - RHEUMATOID ARTHRITIS, UNSPECIFIED Status: Chronic Qualifiers: Rheumatoid arthritis location: multiple sites Rheumatoid factor presence: unspecified presence Qualified Code(s): M06.9 - Rheumatoid arthritis, unspecified - Patient Summary/Data Operative Procedure(s) Performed: Irrigation and debridement of left wrist wound Consults: Consultations 10/24/18 14:17 Consult to Physician [CONS] Routine Consulting Provider: Pascual Morales Call Completed to Consulting Physician: Yes Reason for Consult: left wrist infection Person Notified: RETAIL ADMINISTRATIVE ASSISTANT Date Notified: 10/24/18 Special Instructions: will see this afternoon Labs Pending at D/C: Final results of blood cultures and wound culture which are negative at the time of discharge. Hospital Course: Meghana presented to the clinic initially with concerns of increasing pain, swelling and drainage around her left wrist. She had been scratched by her dog about one week prior. She was seen in the walk-in clinic and there was concern for cellulitis and because she had already been on Augmentin as an outpatient she was admitted to the hospital for IV antibiotics. Initial laboratory studies revealed mild leukocytosis and a significantly elevated C-reactive protein at more than 10. An MRI of the left wrist did not reveal evidence for osteomyelitis but did reveal tenosynovitis involving the extensor compartments of the second and third digits as well as to a lesser extent the fourth digit. Orthopedics was consulted and they recommended antibiotics overnight and reassessment in the morning. She was started on doxycycline and clindamycin. She was not febrile overnight. By the morning after she has shown slight improvement but still has significant swelling on the dorsum of the left hand. She was taken to the operating room and had an incision and debridement area and no abscess was found and there was only minimal fluid around the tendon sheath on the dorsum of the hand. Cultures were obtained. Overnight following surgery there were no issues. There were no fevers. Clinically she is feeling much better. She is able to wiggle her fingers and use her wrist without any significant limitations at this point. Her dressing was changed and there was no concern for drainage and the swelling had improved. Her white count has normalized by the morning of discharge. She feels well enough to go home at this point and I believe she is safe for outpatient management. She will receive doxycycline and clindamycin for one more week. She will follow up with Ortho next week. She will hold her methotrexate this weekend and then restart in a week and a half her her usual schedule. - Patient Instructions Diet: Regular Diet as Tolerated Activity: As Tolerated Showering/Bathing: May Shower Notify Provider of: Fever, Increased Pain, Swelling and Redness, Drainage, Nausea and/or Vomiting Other/Special Instructions: 1. You were in the hospital for management of cellulitis and tenosynovitis involving your left wrist. The infection is getting better with antibiotics and did require an incision and debridement. Your wound care is listed above. I recommend ongoing antibiotic therapy with both clindamycin and doxycycline. You should take doxycycline twice daily with your next dose being due tonight. You should take clindamycin 3 times daily with your next dose being due around 2 PM today. You should take both of these antibiotics with food avoid stomach upset. I would also recommend that you will consume a probiotic-containing yogurt such as Activia or Irish yogurt while you are on antibiotics. 2. Please hold your methotrexate this weekend but you may resume your usual immunosuppressive medications starting on November 05. 3. Follow up with Dr Morales next week. 4. Seek medical attention if you develop fever greater than 101, you have severe pain in your left wrist or if you have significant drainage or increasing swelling. - Discharge Plan *PRESCRIPTION DRUG MONITORING PROGRAM REVIEWED*: Yes *COPY OF PRESCRIPTION DRUG MONITORING REPORT IN PATIENT DOM: No Prescriptions/Med Rec: Clindamycin HCl 300 mg PO TID #21 capsule Doxycycline Hyclate 100 mg PO BID #14 capsule Home Medications: Home Meds Acetaminophen [Tylenol Extra Strength] 1,000 mg PO Q4H PRN 11/20/13 [History] Adalimumab [Humira] 40 mg SQ Q14D 06/20/13 [History] Citalopram Hydrobromide [Celexa] 40 mg PO DAILY 06/20/13 [History] Estradiol 0.5 mg PO DAILY 06/20/13 [History] Methotrexate Sodium [Trexall] 8 mg SQ Q7D 06/20/13 [History] Calcium Citrate 500 mg PO DAILY 01/15/18 [History] Mecobalamin [B-12] 1 tab PO DAILY 01/15/18 [History] Multivitamin [Multi-Day Vitamins] 1 tab PO DAILY 01/15/18 [History] Biotin 2,500 mcg PO DAILY 01/17/18 [History] Cholecalciferol (Vitamin D3) [Vitamin D3] 1,000 units PO DAILY 01/17/18 [History ] Dicyclomine [Bentyl] 10 mg PO Q4H PRN 01/17/18 [History] Esomeprazole Magnesium [Nexium] 40 mg PO DAILY 01/17/18 [History] Folic Acid 2 tab PO .M-SAT 01/17/18 [History] Lovastatin 20 mg PO DAILY 01/17/18 [History] Vitamin B Complex [B Complex] 1 each PO DAILY 01/17/18 [History] traMADol [Ultram] 50 mg PO TID PRN 01/17/18 [History] Nystatin 60 gm TP ASDIRECTED 01/19/18 [History] Amoxicillin/Clavulanate K [Augmentin 875-125 MG] 1 tab PO BID 10/24/18 [History] Calcium Carbonate/Vitamin D3 [Caltrate 600 + D Soft Chew Tab] 2 tab PO DAILY [History] Clobetasol [Clobetasol 0.05%] 1 gram TOP BID PRN 10/24/18 [History] Polyethylene Glycol 3350 [MiraLAX] 17 g PO DAILY PRN 10/24/18 [History] Sucralfate 0.5 gm PO QID 10/24/18 [History] Triamcinolone Acetonide [Triamcinolone Acetonide 0.1% Crm] 1 applic TOP BID PRN 10/24/18 [History] Clindamycin HCl 300 mg PO TID #21 capsule 10/26/18 [Rx] Doxycycline Hyclate 100 mg PO BID #14 capsule 10/26/18 [Rx] Oxygen Therapy Mode: Room Air Patient Handouts: Cellulitis, Adult, Clindamycin capsules, Wound Infection, [id number], Doxycycline tablets or capsules Referrals: Pascual Morales MD [Physician] - 11/02/18 10:30 am (Please arrive 15 minutes early to register for your appointment. Please register at the ER desk.) - Discharge Summary/Plan Comment DC Time >30 min.: No - Patient Data Vitals - Most Recent: Last Vital Signs Temp 36.5 C 10/26/18 11:00 Pulse 54 L 10/26/18 11:00 Resp 18 10/26/18 11:00 BP 142/73 H 10/26/18 11:00 Pulse Ox 98 10/26/18 11:00 Weight - Most Recent: 56.835 kg I&O - Last 24 hours: Intake & Output 10/25/18 10/26/18 10/26/18 22:59 06:59 14:59 Intake Total 3301 1404 Balance 3301 1404 Lab Results - Last 24 hrs: Laboratory Results - last 24 hr 10/26/18 10/26/18 Range/Units 04:50 04:50 WBC 6.2 (4.5-11.0) K/uL RBC 3.33 (3.30-5.50) M/uL Hgb 11.3 L D (12.0-15.0) g/dL Hct 34.8 L (36.0-48.0) % MCV 105 H (80-98) fL MCH 34 H (27-31) pg MCHC 33 (32-36) % Plt Count 187 (150-400) K/uL Sodium 141 (140-148) mmol/L Potassium 4.5 (3.6-5.2) mmol/L Chloride 111 H (100-108) mmol/L Carbon Dioxide 27 (21-32) mmol/L Anion Gap 7.5 (5.0-14.0) mmol/L BUN 7 (7-18) mg/dL Creatinine 0.7 (0.6-1.0) mg/dL Est Cr Clr Drug Dosing 64.46 mL/min Estimated GFR (MDRD) > 60 (>60) Glucose 90 (74-106) mg/dL Calcium 7.8 L (8.5-10.1) mg/dL BRANDAN Results - Last 24 hrs: Microbiology 10/24/18 12:15 Aerobic Blood Culture - Preliminary Blood - Venous NO GROWTH AFTER 2 DAYS Anaerobic Blood Culture - Preliminary NO GROWTH AFTER 2 DAYS 10/24/18 12:25 Aerobic Blood Culture - Preliminary Blood - Venous - Lab Draw NO GROWTH AFTER 2 DAYS Anaerobic Blood Culture - Preliminary NO GROWTH AFTER 2 DAYS 10/25/18 12:50 Gram Stain - Final Wrist, Left Med Orders - Current: Current Medications Acetaminophen (Tylenol) 650 mg PO Q4H PRN PRN Reason: Pain (Mild 1-3)/fever Last Admin: 10/26/18 11:03 Dose: 650 mg Citalopram Hydrobromide (Celexa) 40 mg PO DAILY [facility] Last Admin: 10/26/18 08:23 Dose: 40 mg Estradiol (Estradiol) 0.5 mg PO DAILY [facility] Last Admin: 10/26/18 08:24 Dose: 0.5 mg Folic Acid (Folic Acid) 2 mg PO MoTuWeThFrSa@0900 [facility] Last Admin: 10/26/18 08:24 Dose: 2 mg Lactobacillus Rhamnosus (Culturelle) 1 cap PO BID [facility] Last Admin: 10/26/18 08:24 Dose: 1 cap Lovastatin (Mevacor) 20 mg PO DAILY [facility] Last Admin: 10/26/18 08:24 Dose: 20 mg Morphine Sulfate (Morphine) 2 mg IVPUSH Q1H PRN PRN Reason: Pain (severe 7-10) Last Admin: 10/25/18 13:09 Dose: 2 mg Ondansetron HCl (Zofran Odt) 4 mg PO Q6H PRN PRN Reason: Nausea able to take PO Last Admin: 10/25/18 13:46 Dose: 4 mg Oxycodone HCl (Oxycodone) 5 mg PO Q4H PRN PRN Reason: Pain (moderate 4-6) Last Admin: 10/26/18 11:04 Dose: 5 mg Pantoprazole Sodium (Protonix) 40 mg PO ACBREAKFAST [facility] Last Admin: 10/26/18 07:31 Dose: 40 mg Polyethylene Glycol (Miralax) 17 gm PO DAILY PRN PRN Reason: Constipation Last Admin: 10/26/18 07:34 Dose: 17 gm Senna/Docusate Sodium (Senna Plus) 1 tab PO BID PRN PRN Reason: Constipation Sodium Chloride (Saline Flush) 10 ml FLUSH ASDIRECTED PRN PRN Reason: Keep Vein Open Discontinued Medications Bupivacaine HCl (Marcaine 0.5%) Confirm Administered Dose 30 ml .ROUTE .STK-MED ONE Stop: 10/25/18 10:13 Last Admin: 10/25/18 12:41 Dose: 14 ml Clindamycin HCl (Cleocin) 300 mg PO ONETIME ONE Stop: 10/26/18 11:31 Last Admin: 10/26/18 11:59 Dose: 300 mg Doxycycline Hyclate (Vibramycin) 100 mg PO ONETIME ONE Stop: 10/26/18 11:31 Last Admin: 10/26/18 11:59 Dose: 100 mg Fentanyl (Sublimaze) Confirm Administered Dose 100 mcg .ROUTE .STK-MED ONE Stop: 10/25/18 09:32 Gadoteridol (Prohance) 15 ml IV .A DIRECTED [facility] Clindamycin Phosphate 300 mg/ (Sodium Chloride) 52 mls @ 150 mls/hr IV Q6H [facility] Last Admin: 10/26/18 06:41 Dose: 150 mls/hr Doxycycline Hyclate 100 mg/ (Sodium Chloride) 100 mls @ 100 mls/hr IV Q12H [facility] Last Admin: 10/26/18 00:43 Dose: 100 mls/hr Sodium Chloride (Normal Saline) 1,000 mls @ 125 mls/hr IV ASDIRECTED [facility] Last Admin: 10/26/18 04:05 Dose: 125 mls/hr Lactated Ringer's (Ringers, Lactated) Confirm Administered Dose 1,000 mls @ as directed .ROUTE .STK-MED ONE Stop: 10/25/18 12:13 Lovastatin (Mevacor) 20 mg PO QPM [facility] Last Admin: 10/25/18 18:19 Dose: 20 mg Midazolam HCl (Versed 1 Mg/Ml) Confirm Administered Dose 2 mg .ROUTE .STK-MED ONE Stop: 10/25/18 09:32 Propofol (Diprivan 20 Ml) Confirm Administered Dose 200 mg .ROUTE .STK-MED ONE Stop: 10/25/18 09:32 - Exam Quality Assessment: Denies: Supplemental Oxygen General: Reports: Alert, Oriented, Cooperative, No Acute Distress Lungs: Reports: Normal Respiratory Effort Extremities: No Pedal Edema, Other (Left wrist wrapped in surgical dressings with Venkata wrap covering these. No drainage through the Venkata wrap. She is able to wiggle her fingers on her left hand with no difficulty or pain.) Psy/Mental Status: Reports: Alert, Normal Affect
== END 2018-10-26 13:05 | disposition home or self-care (01) | DRG 464 ==
LOC: JP.2SS 10:58
PROVIDERS: ADMIT Internal Medicine; ATTEND Internal Medicine
PROC: 0JBH0ZZ Excision of Left Lower Arm Subcutaneous Tissue and Fascia, Open Approach (ICD-10-PCS; principal; 2018-10-25)
PROC: 0LD60ZZ Extraction of Left Lower Arm and Wrist Tendon, Open Approach (ICD-10-PCS; 2018-10-25)
DX: M65.132 Other infective (teno)synovitis, left wrist (principal); L03.114 Cellulitis of left upper limb; S60.812A Abrasion of left wrist, initial encounter; X58.XXXA Exposure to other specified factors, initial encounter; M06.9 Rheumatoid arthritis, unspecified; H54.7 Unspecified visual loss; E78.00 Pure hypercholesterolemia, unspecified; M54.9 Dorsalgia, unspecified; G89.29 Other chronic pain; F41.9 Anxiety disorder, unspecified; F32.9 Major depressive disorder, single episode, unspecified; L40.9 Psoriasis, unspecified; Z90.49 Acquired absence of other specified parts of digestive tract; Z79.899 Other long term (current) drug therapy; Z88.1 Allergy status to other antibiotic agents; Z88.8 Allergy status to other drugs, medicaments and biological substances; Z90.710 Acquired absence of both cervix and uterus; Z87.891 Personal history of nicotine dependence
CPT/HCPCS: 36415; 73223-LT; 80048; 85025; 85027; 86140; 87040; 87070; 87075; 87205; A9270-GY; A9576; J2250; J2270; J2704; J3010; J3490; J7030; J7050; J7120

== ENCOUNTER 2018-11-26 23:41 | Emergency (ER) | payer MEDICARE, MEDICAID ==
[2018-11-26 23:48] VITALS: BP 118/68
--- NOTE | 2018-11-27 00:11 | EDM.PDOC ---
ED HPI GENERAL MEDICAL PROBLEM - General Chief Complaint: General Stated Complaint: MEDICAL VIA [facility] Time Seen by Provider: 11/27/18 00:01 Source of Information: Reports: Patient, Family, RN Notes Reviewed History Limitations: Reports: No Limitations - History of Present Illness INITIAL COMMENTS - FREE TEXT/NARRATIVE: 58-year-old female presents emergency department today via EMS services complaint of chest pressure, she is known history of rheumatoid arthritis is combination of marrow and methotrexate proximally 2 hours prior to presentation she used combination of both these drugs at the same time which she has done multiple times in the past proximally 10 minutes following that she had an episode of chest pressure diaphoresis nausea and shortness of breath EMS services were called transported to ED for further evaluation had received fentanyl and Zofran which provided good relief at this time she is chest pain- free she has an anaphylactic reaction to aspirin 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: EKG, IV/IO, Nitroglycerin, Other (see below) Other Treatments PROTECTIVE SERVICES CASE WORKER: fentanyl - Related Data Allergies Allergy/AdvReac Type Severity Reaction Status Date / Time aspirin Allergy Airway Verified 11/26/18 23:48 Tightness erythromycin base Allergy Hives Verified 11/26/18 23:48 [Erythromycin Base] NSAIDS (Non-Steroidal Allergy Airway Verified 11/26/18 23:48 Anti-Inflamma Tightness Home Meds: Home Meds Acetaminophen [Tylenol Extra Strength] 1,000 mg PO Q4H PRN 06/20/13 [History] Adalimumab [Humira] 40 mg SQ Q14D 06/20/13 [History] Citalopram Hydrobromide [Celexa] 40 mg PO DAILY 06/20/13 [History] Estradiol 0.5 mg PO DAILY 06/20/13 [History] Methotrexate Sodium [Trexall] 8 mg SQ Q7D 06/20/13 [History] Calcium Citrate 500 mg PO DAILY 01/15/18 [History] Mecobalamin [B-12] 1 tab PO DAILY 01/15/18 [History] Multivitamin [Multi-Day Vitamins] 1 tab PO DAILY 01/15/18 [History] Biotin 2,500 mcg PO DAILY 01/17/18 [History] Cholecalciferol (Vitamin D3) [Vitamin D3] 1,000 units PO DAILY 01/17/18 [History ] Dicyclomine [Bentyl] 10 mg PO Q4H PRN 01/17/18 [History] Esomeprazole Magnesium [Nexium] 40 mg PO DAILY 01/17/18 [History] Folic Acid 2 tab PO .M-SAT 01/17/18 [History] Lovastatin 20 mg PO DAILY 01/17/18 [History] Vitamin B Complex [B Complex] 1 each PO DAILY 01/17/18 [History] traMADol [Ultram] 50 mg PO TID PRN 01/17/18 [History] Nystatin 60 gm TP ASDIRECTED PRN 01/19/18 [History] Calcium Carbonate/Vitamin D3 [Caltrate 600 + D Soft Chew Tab] 2 tab PO DAILY [History] Clobetasol [Clobetasol 0.05%] 1 gram TOP BID PRN 10/24/18 [History] Polyethylene Glycol 3350 [MiraLAX] 17 g PO DAILY PRN 10/24/18 [History] Sucralfate 0.5 gm PO QID 10/24/18 [History] Triamcinolone Acetonide [Triamcinolone Acetonide 0.1% Crm] 1 applic TOP BID PRN 10/24/18 [History] Past Medical History HEENT History: Reports: Impaired Vision Cardiovascular History: Reports: High Cholesterol Gastrointestinal History: Reports: GERD, PUD 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: Musculoskeletal History: Reports: Back Pain, Chronic, Fracture, RA Psychiatric History: Reports: Anxiety, Depression Immunologic History: Reports: Immunosuppression, Other (See Below) Other Immunologic History: pt is currently taking humara for RA Dermatologic History: Reports: Psoriasis - Infectious Disease History Infectious Disease History: Reports: Chicken Pox - Past Surgical History GI Surgical History: Reports: Bariatric Procedure, Cholecystectomy, Colonoscopy , EGD Female Surgical History: Reports: Hysterectomy, Salpingo-Oophorectomy Social & Family History - Family History Family Medical History: Noncontributory - Tobacco Use Smoking Status *Q: Never Smoker - Caffeine Use Caffeine Use: Reports: Coffee, Soda - Alcohol Use Days Per Week of Alcohol Use: 2 Number of Drinks Per Day: 2 Total Drinks Per Week: 4 - Recreational Drug Use Recreational Drug Use: No ED ROS GENERAL - Review of Systems Review Of Systems: See Below Constitutional: Reports: Diaphoresis HEENT: Reports: No Symptoms Respiratory: Reports: Shortness of Breath Cardiovascular: Reports: Chest Pain GI/Abdominal: Reports: Nausea ED EXAM, GENERAL - Physical Exam Exam: See Below Exam Limited By: No Limitations General Appearance: Alert, WD/WN, No Apparent Distress Head: Atraumatic, Normocephalic Neck: Normal Inspection, Supple, Non-Tender, Full Range of Motion Respiratory/Chest: No Respiratory Distress, Lungs Clear, Normal Breath Sounds, No Accessory Muscle Use, Chest Non-Tender Cardiovascular: Regular Rate, Rhythm, No Murmur GI/Abdominal: Soft, Non-Tender Course - Vital Signs Last Recorded V/S: Last Vital Signs Temp 96.5 F 11/26/18 23:43 Pulse 61 11/26/18 23:43 Resp 11 L 11/26/18 23:43 BP 118/68 11/26/18 23:43 Pulse Ox 95 11/26/18 23:43 - Orders/Labs/Meds Orders: Active Orders 24 hr Category Date Time Status Cardiac Monitoring [RC] .As Directed Care 11/27/18 00:08 Active Labs: Laboratory Tests 11/27/18 11/27/18 Range/Units 00:15 00:15 WBC 11.9 H (4.5-11.0) K/uL RBC 4.41 (3.30-5.50) M/uL Hgb 14.7 D (12.0-15.0) g/dL Hct 45.0 (36.0-48.0) % MCV 102 H (80-98) fL MCH 33 H (27-31) pg MCHC 33 (32-36) % Plt Count 261 (150-400) K/uL Neut % (Auto) 76 H (36-66) % Lymph % (Auto) 17 L (24-44) % [place] % (Auto) 5 (2-6) % Eos % (Auto) 1 L (2-4) % Baso % (Auto) 0 (0-1) % Sodium 142 (140-148) mmol/L Potassium 4.1 (3.6-5.2) mmol/L Chloride 105 (100-108) mmol/L Carbon Dioxide 27 (21-32) mmol/L Anion Gap 10.5 (5.0-14.0) mmol/L BUN 22 H D (7-18) mg/dL Creatinine 0.8 (0.6-1.0) mg/dL Est Cr Clr Drug Dosing 56.40 mL/min Estimated GFR (MDRD) > 60 (>60) Glucose 121 H (74-106) mg/dL Calcium 8.2 L (8.5-10.1) mg/dL Total Bilirubin 0.5 (0.2-1.0) mg/dL AST 31 (15-37) U/L ALT 47 (12-78) U/L Alkaline Phosphatase 79 (46-116) U/L CK-MB (CK-2) 0.9 (0-3.6) mg/mL Troponin I < 0.017 (0.000-0.056) ng/mL Total Protein 6.3 L (6.4-8.2) g/dL Albumin 3.0 L (3.4-5.0) g/dL Globulin 3.3 (2.3-3.5) g/dL Albumin/Globulin Ratio 0.9 L (1.2-2.2) - Re-Assessments/Exams Free Text/Narrative Re-Assessment/Exam: 11/27/18 01:15 heart score is 2 Departure - Departure Time of Disposition: 01:23 Disposition: Home, Self-Care 01 Condition: Fair Clinical Impression: Atypical chest pain - Discharge Information Referrals: Guerita Fregoso PA [Primary Care Provider] - Forms: ED Department Discharge Additional Instructions: Continue with your regular medications, Please followup with your primary care provider in 3-5 days if not better, please call return to the emergency department with worsening of symptoms. - My Orders Last 24 Hours: My Active Orders 11/27/18 00:08 Cardiac Monitoring [RC] .As Directed - Assessment/Plan Last 24 Hours: My Active Orders 11/27/18 00:08 Cardiac Monitoring [RC] .As Directed Plan: Assessment Acuity = acute Site and laterality = atypical chest pain Etiology = possibly related to combination methotrexate and Humira given at same time Manifestations = none Location of injury = Home Lab values = CBC, CMP, troponin within normal limits EKG shows no ST elevations or depressions, chest x-ray unremarkable Plan She remained asymptomatic while in the emergency department plan is discharge home follow-up primary care as needed This note was dictated using [employer] voice recognition software please call with any questions on syntax or grammar.
--- NOTE | 2018-11-27 01:18 | CRLCR ---
INDICATION: Chest pain TECHNIQUE: Chest 2 views COMPARISON: Chest x-ray 10/09/2012 FINDINGS: Cardiovascular and mediastinum: Heart size and vasculature are normal in caliber and appearance. Lungs and pleural spaces: Lungs are clear. No sign of infiltrate or mass. No sign of pleural effusion. No pneumothorax. Bones and soft tissues: Old right 6th rib fracture posteriorly. 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 IMPRESSION: No acute findings and no significant changes from the prior exam. Dictated by Nehemiah Eaton MD @ Nov 27 2018 1:17AM Signed by Dr. Nehemiah Eaton @ Nov 27 2018 1:18AM
== END 2018-11-27 01:36 | disposition home or self-care (01) ==
LOC: JP.ED 23:41
DX: R07.89 Other chest pain (principal); E78.00 Pure hypercholesterolemia, unspecified; K21.9 Gastro-esophageal reflux disease without esophagitis; F41.9 Anxiety disorder, unspecified; F32.9 Major depressive disorder, single episode, unspecified; Z79.899 Other long term (current) drug therapy; Z88.6 Allergy status to analgesic agent; Z88.1 Allergy status to other antibiotic agents; Z88.8 Allergy status to other drugs, medicaments and biological substances
CPT/HCPCS: 36415; 71046; 80053; 82553; 84484; 85025; 99284; 99285-25

== ENCOUNTER 2021-12-13 10:28 | Emergency (ER) | payer MEDICARE, MEDICAID ==
[2021-12-13 10:47] VITALS: BP 139/70; PULSE 64
== END 2021-12-13 12:04 | disposition home or self-care (01) ==
LOC: JP.ED 10:28
DX: M54.2 Cervicalgia (principal); E78.00 Pure hypercholesterolemia, unspecified; F17.210 Nicotine dependence, cigarettes, uncomplicated; Z90.49 Acquired absence of other specified parts of digestive tract; Z88.1 Allergy status to other antibiotic agents; Z88.6 Allergy status to analgesic agent; Z79.899 Other long term (current) drug therapy
CPT/HCPCS: 72052; 72052-26; 99282; 99283-25

== ENCOUNTER 2024-10-09 01:55 | Emergency (ER) | payer MEDICAID, MEDICARE ==
[2024-10-09 02:19] VITALS: BP 130/72; PULSE 69
[2024-10-09 02:48] LABS: BASOPHILS ABSOLUTE AUTO 0.04 K/uL (0.00-0.10); BASOPHILS PERCENT AUTO 0.3 % (0.1-1.3); EOSINOPHILS ABSOLUTE AUTO 0.07 K/uL (0.00-0.40); EOSINOPHILS PERCENT AUTO 0.5 % (0.0-5.4); HEMATOCRIT 38.9 % (34.3-46.0); HEMOGLOBIN 13.3 g/dL (11.2-15.5); IMMATURE GRAN ABSOLUTE AUTO 0.09 K/uL (0.00-0.23); IMMATURE GRAN PERCENT AUTO 0.7 % (0.0-0.7); LYMPHOCYTES ABSOLUTE AUTO 2.48 K/uL (0.8-3.3); LYMPHOCYTES PERCENT AUTO 18.1 % (11.4-47.7); MEAN CORPUSCULAR HEMOGLOBIN 34.1 pg (31.6-35.5); MEAN CORPUSCULAR HGB CONC 34.2 g/dL (31.6-35.5); MEAN CORPUSCULAR VOLUME 99.7 fL (81.4-99.0); MONOCYTES ABSOLUTE AUTO 0.99 K/uL (0.20-0.90); MONOCYTES PERCENT AUTO 7.2 % (3.3-12.6); NEUTROPHILS ABSOLUTE AUTO 10.02 K/uL (1.0-7.6); NEUTROPHILS PERCENT AUTO 73.2 % (40.0-78.1); PLATELET COUNT,PLT 404 K/uL (130-375); WHITE BLOOD CELL COUNT,WBC 13.7 K/uL (3.2-11.0)
[2024-10-09] MEDS: Pantoprazole 40 MG Vial IVPUSH ONE (02:49)
[2024-10-09] MEDS: Ondansetron 4 MG/2 ML SDV IVPUSH ONE (02:49)
[2024-10-09] MEDS: HYDROmorphone 0.5 MG/0.5 ML Syringe IVPUSH ONE (02:49)
[2024-10-09] MEDS: Sodium Chloride 0.9% 1,000 ML IV SCH (03:03)
[2024-10-09 03:06] LABS: A/G RATIO 0.8 (1.2-2.2); ALANINE AMINOTRANSFERASE,ALT 33 U/L (12-78); ALKALINE PHOSPHATASE 114 U/L (46-116); ANION GAP 7.4 mmol/L (5.0-14.0); ASPARTATE AMNIOTRANSFERASE,AST 17 U/L (15-37); BILIRUBIN TOTAL 0.3 mg/dL (0.2-1.0); BLOOD UREA NITROGEN,BUN 5 mg/dL (7-18); CALCIUM 8.6 mg/dL (8.5-10.1); CARBON DIOXIDE,CO2 30 mmol/L (21-32); CHLORIDE,CL 103 mmol/L (100-108); CREATININE 0.6 mg/dL (0.6-1.0); EST CRCL DRUG DOSING (CG) 69.83 mL/min; ESTIMATED GFR 101 mL/min (>60); GLUCOSE RANDOM 122 mg/dL (74-106); POTASSIUM,K 3.8 mmol/L (3.6-5.2); PROTEIN TOTAL,TP 6.8 g/dL (6.4-8.2); SODIUM,NA 140 mmol/L (140-148)
[2024-10-09 03:10] LABS: C-REACTIVE PROTEIN 1.43 mg/dL (<0.50)
[2024-10-09] MEDS ORDERED: Iopamidol 612 MG/ML 100 ML Bottle IV PRN (03:18)
[2024-10-09] MEDS: Sodium Chloride 0.9% 80 ML IV SCH (03:23)
[2024-10-09] MEDS: Iopamidol 612 MG/ML 100 ML Bottle IV PRN (03:23)
[2024-10-09 03:27] LABS: APPEARANCE,URINE CLEAR (CLEAR); BILIRUBIN,URINE NEGATIVE (NEGATIVE); COLOR,URINE YELLOW (YELLOW); GLUCOSE,URINE NEGATIVE (NEGATIVE); KETONES,URINE NEGATIVE (NEGATIVE); LEUKOCYTE ESTERASE,URINE NEGATIVE (NEGATIVE); NITRITE,URINE NEGATIVE (NEGATIVE); OCCULT BLOOD,URINE TRACE-INTACT (NEGATIVE); PH,URINE 7.5 (5.0-8.0); PROTEIN,URINE NEGATIVE (NEGATIVE); UROBILINOGEN,URINE 0.2 EU/dL (0.2-1.0)
[2024-10-09 04:02] LABS: AMORPHOUS SEDIMENT,URINE FEW; BACTERIA,URINE FEW; EPITHELIAL CELLS,URINE FEW; MUCUS,URINE NOT SEEN; RBC,URINE 0-5 (0-5); WBC,URINE 0-5 (0-5)
== END 2024-10-09 05:13 | disposition home or self-care (01) ==
LOC: JP.ED 01:55
DX: K31.89 Other diseases of stomach and duodenum (principal); I10 Essential (primary) hypertension; E78.00 Pure hypercholesterolemia, unspecified; F17.210 Nicotine dependence, cigarettes, uncomplicated; Z88.6 Allergy status to analgesic agent; Z88.1 Allergy status to other antibiotic agents; Z88.8 Allergy status to other drugs, medicaments and biological substances; Z79.899 Other long term (current) drug therapy; Z90.49 Acquired absence of other specified parts of digestive tract
CPT/HCPCS: 36415; 74177; 80053; 81001; 83690; 85025; 86140; 96361; 96374; 96375; 99284; J2405; J2470; J7030; Q9967